=== PATIENT | female | born 1945 | race Caucasian/White ===

== ENCOUNTER 2019-08-09 09:12 | Outpatient (CLI) | payer MEDICARE, SELFPAY ==
--- NOTE | 2019-08-09 | XR_ITS ---
WS: [id number] KNEE LEFT TECHNIQUE: 3 views of the left knee CLINICAL INFORMATION: LT PATELLAR PAIN X 3 WEEKS; NO KNOWN INJURY COMPARISON: None. FINDINGS: Normal anatomic alignment. No evidence of acute fracture dislocation. No significant effusion. Hypert rophic patella. Degenerative narrowing at the patellofemoral articulation. XR/XR knee LT 3V* [id number] IMPRESSION: Hypertrophic patella with degenerative narrowing
== END 2019-08-09 09:13 | disposition home or self-care (01) ==
LOC: RADOUTREAD 08-10 09:16
PROVIDERS: Family Provider Family Medicine; Visit Provider Family Medicine
DX: M17.12 Unilateral primary osteoarthritis, left knee (principal); M25.562 Pain in left knee

== ENCOUNTER 2019-11-17 11:07 | Outpatient (CLI) | payer MEDICARE, SELFPAY ==
--- NOTE | 2019-11-17 | MM_ITS ---
WS: [id number] LEFT DIGITAL MAMMOGRAPHY WITH CAD CLINICAL INFORMATION: BREAST NODULE ON LT HISTORY: 6 month follow-up COMPARISON: 05/01/2019 and 03/24/2019 TECHNIQUE: 4 views of the left breast were obtained. FINDINGS: The left breast is composed of heterogeneous fibroglandular density tissue, which can limit the detec tion of small underlying mass lesions. Lucent centered calcifications. Previously described 6 mm asym metric density upper outer left breast is not as well seen today. No new abnormalities. Ultrasound is pending. ULTRASOUND BREAST LEFT TECHNIQUE: Ultrasound left breast focused area of concern. CLINICAL INFORMATION: BREAST NODULE ON LT FINDINGS: Ultrasound left breast at the 12:00 and 2:00 positions. Well-circumscribed cyst at the 12:00 position measuring 3.2 x 3.0 x 3.0 mm. Stable oblong hypoechoic lesion at the 2:00 position measuring 8.2 x 7 .3 x 3.1 mm. This is not definitely cystic and may represent a small lymph node. This is unchanged fr om previous. This is probably benign and recommend additional six-month follow-up to document tri ty. MM/[place] [id number] IMPRESSION: BI-RADS: 3-Probably Benign FOLLOW UP: 6 Month Follow-up
== END 2019-11-17 11:08 | disposition home or self-care (01) ==
LOC: RADSHAW 11:07
PROVIDERS: Family Provider Family Medicine; PCP Family Medicine; Visit Provider Family Medicine
DX: N63.20 Unspecified lump in the left breast, unspecified quadrant (principal); N60.02 Solitary cyst of left breast; N64.89 Other specified disorders of breast
CPT/HCPCS: 76642; 77065

== ENCOUNTER 2020-10-09 14:41 | Outpatient (CLI) | payer MEDICARE, SELFPAY ==
--- NOTE | 2020-10-09 14:46 | MM_ITS ---
WS: [id number] BILATERAL DIGITAL DIAGNOSTIC MAMMOGRAM MAMMOGRAPHY WITH CAD CLINICAL INFORMATION: LT BREAST LUMP COMPARISON: November 17, 2019 TECHNIQUE: Bilateral CC, MLO, and ML views. FINDINGS: 6 month follow-up The breasts are composed of extremely dense tissue, which can limit the detection of small underlying mass lesions. Previously described 6 mm asymmetric density upper outer left breast seen in April 26 is not as well seen today. Ultrasound is pending. Right breast is unremarkable and unchanged. Punctate calcifications. Vascular calcification. ULTRASOUND BREAST LEFT TECHNIQUE: Ultrasound left breast focused area of concern. CLINICAL INFORMATION: LT BREAST LUMP COMPARISON: November 17, 2019 FINDINGS: Ultrasound left breast at the 12 to 2:00 position. Tiny incidental cyst 12:00 position measuring 3 mm . Again seen is the tiny hypoechoic lesion at the 2:00 position 2 cm from the nipple today measuring 4. 8 x 2.9 x 3. 9mm. This is smaller compared to the prior examination where it measured 8.2 x 7.3 x 3.1 mm. This is also stable and smaller compared to 2019. Stability is reassuring and recommend return to annual screening mammography. MM/[place] [id number] IMPRESSION: BI-RADS: 2-Benign FOLLOW UP: 1 Year Follow-up Recommend return to annual screening mammography.
== END 2020-10-09 14:42 | disposition home or self-care (01) ==
PROVIDERS: PCP Family Medicine; Visit Provider Family Medicine
DX: N63.21 Unspecified lump in the left breast, upper outer quadrant (principal)
CPT/HCPCS: 76642; 77066

== ENCOUNTER → 2021-02-08 13:24 | Outpatient (BNVA) | payer MEDICARE, SELFPAY | PROVIDERS: PCP Family Medicine; Visit Provider Nurse Practitioner | DX: Z20.822 Contact with and (suspected) exposure to COVID-19 (principal) | CPT/HCPCS: 87635 ==

== ENCOUNTER → 2021-08-08 10:34 | Outpatient (BNVA) | payer MEDICARE, SELFPAY | PROVIDERS: PCP Family Medicine; Visit Provider Nurse Practitioner Family | DX: N39.0 Urinary tract infection, site not specified (principal); E11.9 Type 2 diabetes mellitus without complications; E16.2 Hypoglycemia, unspecified; I10 Essential (primary) hypertension | CPT/HCPCS: 80053; 81000; 81003; 83036; 87086 ==

== ENCOUNTER → 2021-11-24 09:48 | Outpatient (BNVA) | payer MEDICARE, SELFPAY | PROVIDERS: PCP Family Medicine; Visit Provider Nurse Practitioner Family | DX: E11.9 Type 2 diabetes mellitus without complications (principal); E03.9 Hypothyroidism, unspecified | CPT/HCPCS: 83036; 84443 ==

== ENCOUNTER → 2022-01-28 15:47 | Outpatient (BNVA) | payer MEDICARE, SELFPAY | PROVIDERS: Visit Provider Nurse Practitioner Family | DX: E11.9 Type 2 diabetes mellitus without complications (principal); E03.9 Hypothyroidism, unspecified | CPT/HCPCS: 80053; 83036 ==

== ENCOUNTER 2022-05-18 12:27 | Outpatient (CLI) | payer MEDICARE, SELFPAY ==
--- NOTE | 2022-05-18 13:22 | XR_ITS ---
WS: [id number] Exam: XR wrist LT min 3V* [id number] Date/Time of Exam: 05/18/2022 1:23 PM Reason For Exam: acute left wrist pain No fracture or dislocation. Mild degenerative change of the radiocarpal joint. Moderately advanced de generative change at the CMC joint of the thumb. Soft tissues are unremarkable. XR/XR wrist LT min 3V* [id number] IMPRESSION: 1. Mild DJD of the radiocarpal joint. No fracture or dislocation. 2. 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
== END 2022-05-18 12:28 | disposition home or self-care (01) ==
LOC: RAD 12:30
PROVIDERS: PCP Family Medicine; Visit Provider Family Medicine
DX: M25.532 Pain in left wrist (principal); E11.9 Type 2 diabetes mellitus without complications; E03.9 Hypothyroidism, unspecified
CPT/HCPCS: 73110; 80053; 80061; 82043; 83036; 84443; 85025

== ENCOUNTER → 2022-06-27 11:46 | Outpatient (BNVA) | payer MEDICARE, SELFPAY | PROVIDERS: PCP Family Medicine; Visit Provider Nurse Practitioner Family | DX: J32.9 Chronic sinusitis, unspecified (principal) | CPT/HCPCS: 87426 ==

== ENCOUNTER 2022-07-31 09:01 | Outpatient (CLI) | payer MEDICARE, SELFPAY ==
--- NOTE | 2022-07-31 09:12 | MM_ITS ---
WS: [id number] Bilateral screening 3D tomosynthesis digital mammogram, 07/31/2022 Clinical Data: screening mammogram Comparison: 10/09/2020, 11/17/2019, 05/01/2019, 03/24/2019, 10/04/2017, 03/23/2016, 11/14/2014, 05/20/2012. Findings: The breast parenchymal pattern shows heterogeneous density. No spiculated masses or clustered calcifi cations are seen. There are no secondary signs of carcinoma. There are mole markers on the right [address]. There is asymmetric tissue in the upper outer quadrant of the left breast unchanged. MM/[place] [id number] Impression: 1. Negative bilateral mammogram unchanged. 2. Recommend annual screening mammograms. BIRADS: 1-Negative FOLLOW UP: 1 Year Follow-up The CAD production checker was used.
== END 2022-07-31 09:02 | disposition home or self-care (01) ==
LOC: RAD 09:05
PROVIDERS: PCP Family Medicine; Visit Provider Family Medicine
DX: Z12.31 Encounter for screening mammogram for malignant neoplasm of breast (principal)
CPT/HCPCS: 77063; 77067

== ENCOUNTER → 2022-11-17 09:42 | Outpatient (BNVA) | payer MEDICARE, SELFPAY | PROVIDERS: PCP Family Medicine; Visit Provider Podiatrist Foot & Ankle Surgery | DX: E11.69 Type 2 diabetes mellitus with other specified complication (principal); I73.9 Peripheral vascular disease, unspecified; L60.3 Nail dystrophy; M21.612 Bunion of left foot; M21.611 Bunion of right foot; M20.42 Other hammer toe(s) (acquired), left foot; M20.41 Other hammer toe(s) (acquired), right foot; M21.42 Flat foot [pes planus] (acquired), left foot; M21.41 Flat foot [pes planus] (acquired), right foot | CPT/HCPCS: 11721; 93923; 99203 ==

== ENCOUNTER → 2022-12-03 15:50 | Outpatient (BNVA) | payer MEDICARE, SELFPAY | PROVIDERS: PCP Family Medicine; Visit Provider Family Medicine | DX: E11.69 Type 2 diabetes mellitus with other specified complication (principal); E03.9 Hypothyroidism, unspecified | CPT/HCPCS: 80053; 83036; 84443 ==

== ENCOUNTER → 2023-01-18 10:35 | Outpatient (BNVA) | payer MEDICARE, SELFPAY | PROVIDERS: PCP Family Medicine; Visit Provider Podiatrist Foot & Ankle Surgery | DX: I73.9 Peripheral vascular disease, unspecified (principal); E11.8 Type 2 diabetes mellitus with unspecified complications; L60.3 Nail dystrophy; E11.69 Type 2 diabetes mellitus with other specified complication; M21.612 Bunion of left foot; M21.611 Bunion of right foot; M20.42 Other hammer toe(s) (acquired), left foot; M20.41 Other hammer toe(s) (acquired), right foot; M21.42 Flat foot [pes planus] (acquired), left foot; M21.41 Flat foot [pes planus] (acquired), right foot; Z79.84 Long term (current) use of oral hypoglycemic drugs | CPT/HCPCS: 11721 ==

== ENCOUNTER → 2023-03-22 08:06 | Outpatient (BNVA) | payer MEDICARE, SELFPAY | PROVIDERS: PCP Family Medicine; Visit Provider Podiatrist Foot & Ankle Surgery | DX: E11.69 Type 2 diabetes mellitus with other specified complication (principal); I73.9 Peripheral vascular disease, unspecified; L60.3 Nail dystrophy; M21.612 Bunion of left foot; M21.611 Bunion of right foot; M20.42 Other hammer toe(s) (acquired), left foot; M20.41 Other hammer toe(s) (acquired), right foot; M21.42 Flat foot [pes planus] (acquired), left foot; M21.41 Flat foot [pes planus] (acquired), right foot; Z79.84 Long term (current) use of oral hypoglycemic drugs | CPT/HCPCS: 11721 ==

== ENCOUNTER → 2023-06-03 09:53 | Outpatient (BNVA) | payer MEDICARE, SELFPAY | PROVIDERS: PCP Family Medicine; Visit Provider Family Medicine | DX: E11.69 Type 2 diabetes mellitus with other specified complication (principal) | CPT/HCPCS: 80053; 80061; 82043; 83036; 84443; 85025 ==

== ENCOUNTER → 2023-07-06 08:14 | Outpatient (BNVA) | payer MEDICARE, SELFPAY | PROVIDERS: PCP Family Medicine; Visit Provider Podiatrist Foot & Ankle Surgery | DX: E11.69 Type 2 diabetes mellitus with other specified complication (principal); E03.9 Hypothyroidism, unspecified; L60.3 Nail dystrophy; Z79.84 Long term (current) use of oral hypoglycemic drugs | CPT/HCPCS: 11721 ==

== ENCOUNTER → 2023-09-02 10:33 | Outpatient (BNVA) | payer MEDICARE, SELFPAY | PROVIDERS: PCP Family Medicine; Visit Provider Family Medicine | DX: E11.69 Type 2 diabetes mellitus with other specified complication (principal) | CPT/HCPCS: 80053; 83036 ==

== ENCOUNTER → 2023-12-03 09:28 | Outpatient (BNVA) | payer MEDICARE, SELFPAY | PROVIDERS: PCP Family Medicine; Visit Provider Family Medicine | DX: E03.9 Hypothyroidism, unspecified (principal); E11.69 Type 2 diabetes mellitus with other specified complication | CPT/HCPCS: 80053; 83036; 84439; 84443 ==

== ENCOUNTER → 2024-01-05 09:24 | Outpatient (BNVA) | payer MEDICARE, SELFPAY | PROVIDERS: PCP Family Medicine; Visit Provider Family Medicine | DX: E03.9 Hypothyroidism, unspecified (principal) | CPT/HCPCS: 84439; 84443 ==

== ENCOUNTER → 2024-02-16 08:48 | Outpatient (BNVA) | payer MEDICARE, SELFPAY | PROVIDERS: PCP Family Medicine | DX: I10 Essential (primary) hypertension (principal); E11.69 Type 2 diabetes mellitus with other specified complication; E03.9 Hypothyroidism, unspecified | CPT/HCPCS: 80053; 83036; 84443; 84481; 85025 ==

== ENCOUNTER → 2024-04-14 10:30 | Outpatient (BNVA) | payer MEDICARE, SELFPAY | PROVIDERS: PCP Family Medicine; Visit Provider Family Medicine | DX: E03.9 Hypothyroidism, unspecified (principal) | CPT/HCPCS: 84443 ==

== ENCOUNTER → 2024-07-10 09:17 | Outpatient (BNVA) | payer MEDICARE, SELFPAY | PROVIDERS: PCP Family Medicine; Visit Provider Family Medicine | DX: E03.9 Hypothyroidism, unspecified (principal); E11.69 Type 2 diabetes mellitus with other specified complication; E55.9 Vitamin D deficiency, unspecified; E67.8 Other specified hyperalimentation; L30.9 Dermatitis, unspecified; L98.9 Disorder of the skin and subcutaneous tissue, unspecified; F33.1 Major depressive disorder, recurrent, moderate; I10 Essential (primary) hypertension; M17.12 Unilateral primary osteoarthritis, left knee; R00.0 Tachycardia, unspecified | CPT/HCPCS: 82306; 82607; 83036; 84439; 84443 ==

== ENCOUNTER → 2024-09-11 09:53 | Outpatient (BNVA) | payer MEDICARE, SELFPAY | PROVIDERS: PCP Family Medicine; Referring Provider Family Medicine; Visit Provider Nurse Practitioner Family | DX: L40.0 Psoriasis vulgaris (principal); L85.3 Xerosis cutis; L98.8 Other specified disorders of the skin and subcutaneous tissue; L82.1 Other seborrheic keratosis; D48.5 Neoplasm of uncertain behavior of skin; L57.0 Actinic keratosis | CPT/HCPCS: 11102; 17000; 99204 ==

== ENCOUNTER → 2024-10-11 08:42 | Outpatient (BNVA) | payer MEDICARE, SELFPAY | PROVIDERS: PCP Family Medicine; Visit Provider Dermatology | DX: C44.329 Squamous cell carcinoma of skin of other parts of face (principal) | CPT/HCPCS: 12052; 17311 ==

== ENCOUNTER → 2024-11-04 10:08 | Outpatient (BNVA) | payer MEDICARE, SELFPAY | PROVIDERS: PCP Family Medicine; Visit Provider Registered Nurse Neonatal Intensive Care | DX: N39.0 Urinary tract infection, site not specified (principal) | CPT/HCPCS: 81000 ==

== ENCOUNTER → 2024-11-15 11:59 | Outpatient (BNVA) | payer MEDICARE, SELFPAY | PROVIDERS: PCP Family Medicine; Visit Provider Family Medicine | DX: E03.9 Hypothyroidism, unspecified (principal); E11.69 Type 2 diabetes mellitus with other specified complication | CPT/HCPCS: 80048; 83036; 84439; 84443 ==

== ENCOUNTER → 2025-01-17 10:58 | Outpatient (BNVA) | payer MEDICARE, SELFPAY | PROVIDERS: PCP Family Medicine; Visit Provider Nurse Practitioner Family | DX: L40.0 Psoriasis vulgaris (principal); L98.8 Other specified disorders of the skin and subcutaneous tissue; Z08 Encounter for follow-up examination after completed treatment for malignant neoplasm; Z85.828 Personal history of other malignant neoplasm of skin; L82.0 Inflamed seborrheic keratosis; L29.0 Pruritus ani; R20.8 Other disturbances of skin sensation; R20.9 Unspecified disturbances of skin sensation; L53.8 Other specified erythematous conditions; D48.5 Neoplasm of uncertain behavior of skin | CPT/HCPCS: 11102; 17110; 99214 ==

== ENCOUNTER → 2025-02-16 08:52 | Outpatient (BNVA) | payer MEDICARE, SELFPAY | PROVIDERS: PCP Family Medicine; Visit Provider Dermatology | DX: C44.311 Basal cell carcinoma of skin of nose (principal) | CPT/HCPCS: 15260; 17311 ==

== ENCOUNTER → 2025-02-28 10:08 | Outpatient (BNVA) | payer MEDICARE, SELFPAY | PROVIDERS: PCP Family Medicine; Visit Provider Dermatology | DX: C44.311 Basal cell carcinoma of skin of nose (principal) | CPT/HCPCS: 99213 ==

== ENCOUNTER → 2025-03-14 08:54 | Outpatient (BNVA) | payer MEDICARE, SELFPAY | PROVIDERS: PCP Family Medicine; Visit Provider Dermatology | DX: C44.311 Basal cell carcinoma of skin of nose (principal) | CPT/HCPCS: 99213 ==

== ENCOUNTER → 2025-03-16 12:02 | Outpatient (BNVA) | payer MEDICARE, SELFPAY | PROVIDERS: PCP Family Medicine; Visit Provider Family Medicine | DX: E11.69 Type 2 diabetes mellitus with other specified complication (principal); E03.9 Hypothyroidism, unspecified | CPT/HCPCS: 80048; 83036; 84443 ==

== ENCOUNTER 2025-03-23 19:10 | Emergency (ER) | payer MEDICARE, SELFPAY ==
[2025-03-23 19:23] VITALS: BP 150/75; PULSE 115; RESP 16; TEMP 36.7; O2SAT 92; BMI 32.5
== END 2025-03-23 22:09 | disposition left against medical advice (07) ==
LOC: ER 19:17
PROVIDERS: Emergency Provider Family Medicine; PCP Family Medicine
DX: Z53.21 Procedure and treatment not carried out due to patient leaving prior to being seen by health care provider (principal)

== ENCOUNTER 2025-03-24 10:25 | Emergency (ER) | payer MEDICARE, SELFPAY ==
[2025-03-24 10:35] VITALS: BP 147/71; PULSE 87; RESP 17; TEMP 36.6; O2SAT 95; BMI 32.5
--- NOTE | 2025-03-24 11:05 | XRR_ITS ---
PROCEDURE INFORMATION: Exam: XR Right Shoulder Exam date and time: 03/24/2025 11:22 AM Age: 80 years old Clinical indication: Injury or trauma; Fall; Blunt trauma (contusions or hematomas); Shoulder; Right TECHNIQUE: Imaging protocol: Radiologic exam of the right shoulder. Views: 2 or more views. COMPARISON: CT cervical spin wo con* [id number] 03/24/2025 11:16 AM FINDINGS: Bones/joints: Moderate osteoarthrosis of the acromioclavicular joint. No fractures or dislocations. Soft tissues: Normal. XR/XR shoulder RT min 2V* [id number] IMPRESSION: No acute findings.
--- NOTE | 2025-03-24 11:05 | CTR_ITS ---
PROCEDURE INFORMATION: Exam: CT Cervical Spine Without Contrast Exam date and time: 03/24/2025 11:16 AM Age: 80 years old Clinical indication: Injury or trauma; Fall; Blunt trauma TECHNIQUE: Imaging protocol: Computed tomography of the cervical spine without contrast. Radiation optimization: All CT scans at this facility use at least one of these dose optimization techniques: automated exposure control; mA and/or kV adjustment per patient size (includes targeted exams where dose is matched to clinical indication); or iterative reconstruction. COMPARISON: CT facial bones wo con* [id number] 03/24/2025 11:16 AM RADIATION DOSE METRICS: Total DLP (mGy-cm): 275.1 FINDINGS: Bones/joints: No acute fracture. Normal alignment. There is partial straightening of cervical lordosis. There is moderate to advanced degenerative disc disease at C5-C6 and C6-C7 where there is [id number] spinal canal stenosis secondary to disc osteophyte bulging. Lungs: Lung apices are normal. Soft tissues: Unremarkable. CT/CT cervical spin wo con* [id number] IMPRESSION: No acute cervical spine fracture.
--- NOTE | 2025-03-24 11:05 | CTR_ITS ---
PROCEDURE INFORMATION: Exam: CT Maxillofacial Without Contrast Exam date and time: 03/24/2025 11:16 AM Age: 80 years old Clinical indication: Injury or trauma; Fall; Blunt trauma (contusions or hematomas); Cheek bone and forehead and orbit/periorbital; Right TECHNIQUE: Imaging protocol: Computed tomography of the face without contrast. Radiation optimization: All CT scans at this facility use at least one of these dose optimization techniques: automated exposure control; mA and/or kV adjustment per patient size (includes targeted exams where dose is matched to clinical indication); or iterative reconstruction. COMPARISON: CT head wo con* [id number] 03/24/2025 11:16 AM RADIATION DOSE METRICS: Total DLP (mGy-cm): 634.6 FINDINGS: Paranasal sinuses: There is [id number] paranasal sinus disease. Orbital cavities: Orbits are normal. Globes are unremarkable. Bones: No acute fracture. Soft tissues: There is right periorbital soft tissue swelling. CT/CT facial bones wo con* [id number] IMPRESSION: No acute fracture.
--- NOTE | 2025-03-24 11:05 | CTR_ITS ---
PROCEDURE INFORMATION: Exam: CT Head Without Contrast Exam date and time: 03/24/2025 11:16 AM Age: 80 years old Clinical indication: Injury or trauma; Fall; Blunt trauma (contusions or hematomas); Without loss of consciousness TECHNIQUE: Imaging protocol: Computed tomography of the head without contrast. Radiation optimization: All CT scans at this facility use at least one of these dose optimization techniques: automated exposure control; mA and/or kV adjustment per patient size (includes targeted exams where dose is matched to clinical indication); or iterative reconstruction. COMPARISON: CT facial bones wo con* [id number] 03/24/2025 11:16 AM RADIATION DOSE METRICS: Total DLP (mGy-cm): 1046.9 FINDINGS: Brain: There is mild small vessel disease. There is no evidence of acute parenchymal hemorrhage, extra-axial collection, or acute infarction. There is no mass effect, midline shift, or downward herniation. Cerebral ventricles: No ventriculomegaly. Paranasal sinuses: There is mild paranasal sinus disease. Mastoid air cells: Visualized mastoid air cells are well aerated. Bones: Unremarkable. No acute fracture. Soft tissues: There is right periorbital soft tissue swelling. CT/CT head wo con* [id number] IMPRESSION: Mild small vessel disease. No evidence of acute intracranial process.
--- NOTE | 2025-03-24 11:06 | W.ED.FALL ---
HPI - Fall General: Chief Complaint: Fall Stated Complaint: fall Time Seen by Provider: 03/24/25 10:56 Source: patient Mode of arrival: ambulatory Limitations: no limitations History of Present Illness: 80-year-old female states that she had tripped and fell yesterday and hit her head on the ground states she has a headache with some facial pain some slight neck and right shoulder pain. Does have extensive bruising over the right side of her face she states the pain is currently 5 out of 10 she denies any other injury has been ambulatory since the event Associated symptoms-after fall: Reports headache(s) and neck pain; Denies abdominal pain or chest pain Related Data Previous Rx's ?Medication ?Instructions ?Recorded mometasone 0.1 % topical solution 1 applic topical DAILY #60 mL 04/17/22 mupirocin 2 % topical ointment 1 applic topical BID #15 grams 04/17/22 fluticasone propionate 50 2 spray intranasal DAILY #16 grams 07/30/23 mcg/actuation nasal spray,suspension (Flonase Allergy Relief) empagliflozin 25 mg tablet See Rx Instructions .Route 04/25/24 (Jardiance) .COMPLEX #90 tabs triamcinolone acetonide 0.1 % 1 applic topical BID #80 grams 07/10/24 topical ointment fluconazole 150 mg tablet 150 mg PO Q3D 2 doses #2 tabs 12/18/24 duloxetine 30 mg capsule,delayed 30 mg PO DAILY #90 caps 02/01/25 release glimepiride 4 mg tablet 4 mg PO BID #180 tabs 02/01/25 lisinopril 20 mg tablet 20 mg PO DAILY #90 tabs 02/01/25 lovastatin 40 mg tablet 40 mg PO DAILY #90 tabs 02/01/25 meloxicam 15 mg tablet 15 mg PO DAILY #90 tabs 02/01/25 metformin 500 mg tablet,extended 1,000 mg (2 x 500 mg) PO BID #360 02/01/25 release 24hr (osmotic) tabs lidocaine HCl 3 % topical cream 1 applic topical BID PRN pain 03/16/25 #28.35 grams levothyroxine 200 mcg tablet 200 mcg PO DAILY #90 tabs 03/19/25 levothyroxine 25 mcg tablet 25 mcg PO DAILY #90 tabs 03/19/25 (Synthroid) Allergies Allergy/AdvReac Type Severity Reaction Status Date / Time menthol Allergy Mild redness Verified 03/23/25 19:26 Sulfa (Sulfonamide Allergy Mild ALGY-Redness Verified 03/23/25 19:26 Antibiotics) of Skin Review of Systems Const: Denies: fever(s), chills, body aches or change in appetite Eyes: Denies: blurry vision or eye discomfort ENMT: Denies: throat pain or dental pain Card: Denies: chest pain Resp: Denies: dyspnea GI: Denies: abdominal pain, nausea, vomiting or diarrhea Musc: Reports: neck pain; Denies: back pain Skin/Breast: Denies: rash Neuro: Reports: headache(s) PFSH ED PFSH: Medical History Eczema Hemorrhoids Major depression Hypothyroidism Osteoarthritis of left knee Type 2 diabetes mellitus Hypertension Surgical History History of hysterectomy Total - benign History of cholecystectomy History of exploratory laparotomy History of appendectomy Family History Brother Bleeding disorder Clotting disorder Diabetes Hypertension Mother Clotting disorder Dementia Social History Smoking and tobacco/nicotine status: never used tobacco/nicotine Alcohol intake: never Substance/Drug Use: never Adopted: No service: No Current occupational exposures/hazards: No Female Reproductive History: Date of menopause: 08/26/81 Physical Exam Const: COMMON NORMALS: no acute distress, patient oriented x3 and healthy appearing HENMT: COMMON NORMALS: normocephalic HEAD & SCALP: normocephalic OTHER: Contusion noted to right side of the face and forehead Eye: COMMON NORMALS: Equal, round and reactive pupils present and EOMs intact bilaterally PUPIL: Yes Equal, round and reactive pupils present Neck/C-Spine: COMMON NORMALS: full ROM and supple Chest: COMMONS NORMALS: normal inspection of the chest and normal palpation of entire chest wall Resp: COMMON NORMALS: normal respiratory effort, No retractions, No use of accessory muscles and clear to auscultation bilaterally AUSCULTATION: clear to auscultation bilaterally Cardio: COMMON NORMALS: regular rate, regular rhythm and No murmurs present (Cardio) RATE: regular rate RHYTHM: regular rhythm Extremity: COMMON NORMALS: full ROM NARRATIVE EXTREMITY EXAM: Tenderness to right shoulder no obvious deformity Neuro: COMMON NORMALS: patient oriented x3, moves all extremities and no focal motor deficits Psych: COMMON NORMALS: mental status grossly normal, Normal thought process present and cooperative THOUGHT PROCESS: Normal thought process present Skin: COMMON NORMALS: no rashes or lesions noted and no wounds GENERAL SKIN EXAM: no rashes or lesions noted Course Vital Signs: Vital signs: Vital Signs Temperature 97.9 F 03/24/25 10:35 Pulse Rate 78 03/24/25 11:36 Respiratory Rate 17 03/24/25 10:35 Blood Pressure 152/77 03/24/25 11:36 Pulse Oximetry 95 03/24/25 11:36 Oxygen Delivery Me thod Room Air 03/24/25 10:35 MDM - Fall Medical Decision Making Patient presents here after a fall does have contusions imaging here is all normal she stable for discharge follow-up PCP return if worsening Medical Records I reviewed the patient's medical records. Lab Data Radiology Impressions Cervical Spine CT 03/24/25 11:05 IMPRESSION: No acute cervical spine fracture. Face CT 03/24/25 11:05 IMPRESSION: No acute fracture. Head CT 03/24/25 11:05 IMPRESSION: Mild small vessel disease. No evidence of acute intracranial process. Shoulder X-Ray 03/24/25 11:05 IMPRESSION: No acute findings. All radiology interpretation(s) finalized by discharge Discharge Plan Discharge Patient Disposition: Home Clinical Impression: Closed head injury, Contusion of face, Fall Condition: Stable Prescriptions: No Action fluticasone propionate [Flonase Allergy Relief] 50 mcg/actuation spray,suspension 2 spray intranasal DAILY Qty: 16 0RF Rx Instructions: administer into each nostril mupirocin 2 % ointment 1 applic topical BID Qty: 15 0RF mometasone 0.1 % solution 1 applic TOPICAL DAILY Qty: 60 2RF Rx Instructions: apply 5 drops to affected areas on scalp and ears prn triamcinolone acetonide 0.1 % ointment 1 applic topical BID Qty: 80 0RF Rx Instructions: apply to affected area no more than 2 weeks per month. not for face lidocaine HCl 3 % cream 1 applic topical BID PRN (Reason: pain) Qty: 28.35 0RF Jardiance 25 mg tablet See Rx Instructions .ROUTE .COMPLEX Qty: 90 3RF Dose Instruction: TAKE 1 TABLET BY MOUTH EVERY MORNING Rx Instructions: TAKE 1 TABLET BY MOUTH EVERY MORNING fluconazole 150 mg tablet 150 mg PO Q3D 0 Days Qty: 2 0RF glimepiride 4 mg tablet 4 mg PO BID Qty: 180 3RF lisinopril 20 mg tablet 20 mg PO DAILY Qty: 90 3RF lovastatin 40 mg tablet 40 mg PO DAILY Qty: 90 3RF duloxetine 30 mg capsule,delayed release(DR/EC) 30 mg PO DAILY Qty: 90 3RF meloxicam 15 mg tablet 15 mg PO DAILY Qty: 90 3RF metformin 500 mg tablet extended release 24hr 1,000 mg PO BID Qty: 360 3RF levothyroxine [Synthroid] 25 mcg tablet 25 mcg PO DAILY Qty: 90 1RF Rx Instructions: take with levothyroxine 200mcg tablet to make a total of 225mcg levothyroxine 200 mcg tablet 200 mcg PO DAILY Qty: 90 3RF Discharge Orders: Discharge ED (Routine); Ordered 03/24/25 Ordered By: Adriana Sharp Referrals: Ignacio Brian MD [Primary Care Provider, Family Practice] - 4-7 days Discharge Diet: Advance as tolerated Discharge Activity: Resume usual activity Patient Instructions: Head Injury (ED), Facial Contusion (ED) Print Language: Luxembourgish Coding Level of Care Code ED 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
[2025-03-24 11:36] VITALS: BP 152/77; PULSE 78; O2SAT 95
[2025-03-24 11:50] VITALS: BP 140/54; PULSE 80; O2SAT 98
== END 2025-03-24 11:51 | disposition home or self-care (01) ==
PROVIDERS: Emergency Provider Emergency Medicine; PCP Family Medicine
DX: S09.8XXA Other specified injuries of head, initial encounter (principal); S00.83XA Contusion of other part of head, initial encounter; Z79.84 Long term (current) use of oral hypoglycemic drugs; W01.0XXA Fall on same level from slipping, tripping and stumbling without subsequent striking against object, initial encounter; E11.9 Type 2 diabetes mellitus without complications; I10 Essential (primary) hypertension
CPT/HCPCS: 70450; 70486; 72125; 73030; 99284

== ENCOUNTER → 2025-05-09 10:36 | Outpatient (BNVA) | payer MEDICARE, SELFPAY | PROVIDERS: PCP Family Medicine; Visit Provider Family Medicine | DX: E03.9 Hypothyroidism, unspecified (principal) | CPT/HCPCS: 84439; 84443 ==

== ENCOUNTER → 2025-05-18 08:21 | Outpatient (BNVA) | payer MEDICARE, SELFPAY | PROVIDERS: PCP Family Medicine; Visit Provider Nurse Practitioner Family | DX: L40.0 Psoriasis vulgaris (principal); L82.1 Other seborrheic keratosis; L98.8 Other specified disorders of the skin and subcutaneous tissue; Z08 Encounter for follow-up examination after completed treatment for malignant neoplasm; Z85.828 Personal history of other malignant neoplasm of skin | CPT/HCPCS: 99214 ==